=== PATIENT | female | born 1950 | race Caucasian/White ===

== ENCOUNTER 2020-01-04 16:04 | Inpatient (IN) ==
[2020-01-04] MEDS ORDERED: Acetaminophen 325 MG TABLET PO ONE (16:11)
[2020-01-04] MEDS ORDERED: 0.9 % Sodium Chloride 1,000 ML IVC ONE (16:11)
[2020-01-04 16:32] LABS: Bilirubin,Urine Negative (Negative); Blood,Urine Negative (Negative); Clarity,Urine Clear (Clear); Color,Urine Yellow (Yellow); Glucose,Urine (UA) Normal (Normal); Ketones,Urine Negative (Negative); Leukocyte Esterase,Urine Negative (Negative); Nitrite,Urine Negative (Negative); Protein,Urine Negative (Neg-Trace); Specific Gravity,Urine 1.015 (1.010-1.025); Urobilinogen,Urine Normal (Normal)
[2020-01-04 16:42] LABS: Basophils # 0.1 K/mcL (0.0-0.2); Basophils % 0.9 %; Eosinophils # 0.4 K/mcL (0.0-0.6); Hematocrit 37.5 % (35.3-44.9); Hemoglobin 12.8 g/dL (11.5-15.4); Immature Granulocytes % 0.4 % (0-4); Lymphocytes # 1.2 K/mcL (0.6-4.6); Lymphocytes % 8.8 %; Mean Corpuscular HGB Conc 34.1 g/dL (31.6-35.5); Mean Corpuscular Hemoglobin 28.4 pg (28.0-33.3); Mean Corpuscular Volume 83.1 fL (83.0-100.0); Mean Platelet Volume 10.6 fL (9.4-12.4); Monocytes # 1.5 K/mcL (0.0-1.3); Monocytes % 10.5 %; Neutrophils # 10.8 K/mcL (1.6-8.9); Platelet Count 796 K/mcL (140-400); Red Blood Count 4.51 M/mcL (3.82-4.97); Red Cell Distribution Width 14.5 % (11.5-14.5); Segmented Neutrophils % 76.4 %; White Blood Count 14.1 K/mcL (4.3-11.1)
[2020-01-04 16:55] LABS: Alanine Aminotransferase 13 Units/L (7-52); Albumin 3.7 g/dL (3.5-5.7); Albumin/Globulin Ratio 1.5 (1.1-2.2); Alkaline Phosphatase 80 Units/L (34-104); Aspartate Amino Transferase 22 Units/L (13-39); BUN/Creatinine Ratio 9 (6-26); Bilirubin,Total 0.4 mg/dL (0.3-1.0); Blood Urea Nitrogen 16 mg/dL (8-23); Calcium 7.9 mg/dL (8.6-10.3); Carbon Dioxide 26 mEq/L (23-29); Chloride 95 mEq/L (98-107); Globulin 2.5 g/dL (2.4-3.5); Glucose 124 mg/dL (70-105); Osmolality,Calculated 269 (280-300); Potassium 4.4 mEq/L (3.5-5.1); Sodium 128 mEq/L (136-145); Total Protein 6.2 g/dL (6.4-8.9); Troponin I < 0.03 ng/mL (< 0.04); eGFR For African Americans 33 (> 60); eGFR For Non-African Americans 27 (> 60)
[2020-01-04 19:19] LABS: Adenovirus Not Detected (Not Detect); Bordetella Pertussis Not Detected (Not Detect); Chlamydophila pneumoniae Not Detected (Not Detect); Coronavirus 229E Not Detected (Not Detect); Coronavirus HKU1 Not Detected (Not Detect); Coronavirus NL63 Not Detected (Not Detect); Coronavirus OC43 Not Detected (Not Detect); Human Metapneumovirus Not Detected (Not Detect); Human Rhinovirus/Enterovirus Not Detected (Not Detect); Influenza A Subtype 2009 H1 Not Detected (Not Detect); Influenza B Not Detected (Not Detect); Mycoplasma pneumoniae Not Detected (Not Detect); Parainfluenza Virus 1 Not Detected (Not Detect); Parainfluenza Virus 2 Not Detected (Not Detect); Parainfluenza Virus 3 Not Detected (Not Detect); Parainfluenza Virus 4 Not Detected (Not Detect); Respiratory Syncytial Virus Not Detected (Not Detect); SARS-CoV-2 Not Detected (Not Detect)
[2020-01-04] MEDS ORDERED: 0.9 % Sodium Chloride 1,000 ML IVC SCH (19:30)
[2020-01-04] MEDS ORDERED: tiZANidine 4 MG TABLET PO SCH (21:54)
[2020-01-04] MEDS ORDERED: MOM Conc 10 ML UD.LIQ PO PRN (21:54)
[2020-01-04] MEDS ORDERED: Ondansetron ODT 4 MG TAB.RAPDIS SL PRN (21:54)
[2020-01-04] MEDS ORDERED: Naloxone 0.4 MG/ML INJ IVP PRN (21:54)
[2020-01-04] MEDS ORDERED: Mag Hydrox/Al Hydrox/Simeth 30 ML UDC PO PRN (21:54)
[2020-01-04] MEDS: Pregabalin 25 MG CAPSULE PO SCH (23:30)
[2020-01-05] MEDS: 0.9 % Sodium Chloride 1,000 ML IVC SCH ×2 (00:30→06:30)
[2020-01-05] MEDS ORDERED: Ipratropium/Albuterol Neb 3 ML IH PRN (07:06)
[2020-01-05 07:32] LABS: Basophils # 0.1 K/mcL (0.0-0.2); Basophils % 0.7 %; Eosinophils # 0.6 K/mcL (0.0-0.6); Eosinophils % 3.2 %; Hematocrit 41.5 % (35.3-44.9); Hemoglobin 13.6 g/dL (11.5-15.4); Immature Granulocytes % 0.4 % (0-4); Lymphocytes % 11.5 %; Mean Corpuscular HGB Conc 32.8 g/dL (31.6-35.5); Mean Corpuscular Volume 85.4 fL (83.0-100.0); Mean Platelet Volume 10.4 fL (9.4-12.4); Monocytes # 1.8 K/mcL (0.0-1.3); Monocytes % 9.7 %; Neutrophils # 13.9 K/mcL (1.6-8.9); Platelet Count 816 K/mcL (140-400); Red Blood Count 4.86 M/mcL (3.82-4.97); Red Cell Distribution Width 14.7 % (11.5-14.5); Segmented Neutrophils % 74.5 %; White Blood Count 18.6 K/mcL (4.3-11.1)
[2020-01-05 07:33] LABS: Lymphocytes # 2.1 K/mcL (0.6-4.6)
[2020-01-05] MEDS: Pregabalin 25 MG CAPSULE PO SCH ×2 (07:52→19:40)
[2020-01-05] MEDS: Multivit/Ca/Min/Fe/FA 1 TAB TABLET PO SCH (07:52)
[2020-01-05] MEDS: Loratadine 10 MG TABLET PO SCH (07:52)
[2020-01-05] MEDS: Fluticasone Propionate Nasal 50 MCG/SPRAY BOTTLE NS SCH (08:09)
[2020-01-05 09:35] LABS: Calcium 8.8 mg/dL (8.6-10.3); Potassium 4.3 mEq/L (3.5-5.1)
[2020-01-05] MEDS: Budesonide/Formoterol 80/4.5 1 PUFF INH IH SCH ×2 (09:44→22:25)
[2020-01-05] MEDS: Nicotine 14 MG PATCH.TD24 TD SCH (09:56)
[2020-01-05] MEDS: MethylPREDNISolone 40 MG/ML VIAL IVP SCH ×2 (09:59→16:19)
[2020-01-05] MEDS ORDERED: Budesonide/Formoterol 80/4.5 1 PUFF INH IH SCH (10:00)
[2020-01-05] MEDS: Acetaminophen 325 MG TABLET PO PRN (19:40)
[2020-01-06] MEDS: MethylPREDNISolone 40 MG/ML VIAL IVP SCH ×4 (00:16→23:14)
[2020-01-06] MEDS ORDERED: Ketorolac 30 MG/ML VIAL IVP ONE (00:48)
[2020-01-06 03:39] LABS: Bilirubin,Urine Negative (Negative); Blood,Urine Negative (Negative); Clarity,Urine Clear (Clear); Color,Urine Yellow (Yellow); Glucose,Urine (UA) 100 mg/dL (Normal); Ketones,Urine Negative (Negative); Leukocyte Esterase,Urine Negative (Negative); Nitrite,Urine Negative (Negative); PH,Urine 6.5 pH Units (5.0-8.0); Protein,Urine 30 mg/dL (Neg-Trace); Urobilinogen,Urine Normal (Normal)
[2020-01-06 03:44] LABS: Bacteria,Urine Few per hpf (None-Few); RBC,Urine 0-3 per hpf (0-3); Squamous Epithelial Cell,Urine Few per hpf (None-Few); WBC,Urine 0-3 per hpf (0-3)
[2020-01-06 03:47] LABS: Transitional Epi Cells,Urine Few per hpf (None-Few)
[2020-01-06 03:50] LABS: Renal Epithelial Cells,Urine Few per hpf (None-Few)
[2020-01-06 07:21] LABS: Basophils # 0.1 K/mcL (0.0-0.2); Basophils % 0.2 %; Hematocrit 39.8 % (35.3-44.9); Hemoglobin 13.5 g/dL (11.5-15.4); Immature Granulocytes % 1.2 % (0-4); Lymphocytes % 4.1 %; Mean Corpuscular HGB Conc 33.9 g/dL (31.6-35.5); Mean Corpuscular Hemoglobin 28.2 pg (28.0-33.3); Mean Corpuscular Volume 83.1 fL (83.0-100.0); Mean Platelet Volume 10.2 fL (9.4-12.4); Monocytes # 0.6 K/mcL (0.0-1.3); Monocytes % 2.2 %; Platelet Count 797 K/mcL (140-400); Red Blood Count 4.79 M/mcL (3.82-4.97); Red Cell Distribution Width 14.6 % (11.5-14.5); Segmented Neutrophils % 92.3 %; White Blood Count 25.2 K/mcL (4.3-11.1)
[2020-01-06 07:34] LABS: Neutrophils # 23.3 K/mcL (1.6-8.9)
[2020-01-06] MEDS: Pregabalin 25 MG CAPSULE PO SCH ×2 (07:41→19:43)
[2020-01-06] MEDS: Acetaminophen 325 MG TABLET PO PRN (07:41)
[2020-01-06] MEDS: Loratadine 10 MG TABLET PO SCH (07:42)
[2020-01-06] MEDS: Multivit/Ca/Min/Fe/FA 1 TAB TABLET PO SCH (07:42)
[2020-01-06] MEDS: Nicotine 14 MG PATCH.TD24 TD SCH (07:42)
[2020-01-06] MEDS: Fluticasone Propionate Nasal 50 MCG/SPRAY BOTTLE NS SCH (07:42)
[2020-01-06] MEDS: Metoprolol XL (24 HR) Succ 50 MG TAB.ER.24H PO SCH ×2 (07:42→07:52)
[2020-01-06 07:48] LABS: Calcium 9.3 mg/dL (8.6-10.3); Potassium 4.3 mEq/L (3.5-5.1)
[2020-01-06] MEDS ORDERED: Doxycycline 100 MG in 0.9 % Sodium Chloride Mini Bag 100 ML IVPB SCH ×2 (08:00→10:30)
[2020-01-06] MEDS ORDERED: Perflutren Lipid Microsphere 1.3 ML in 0.9 % Sodium Chloride 8.7 ML IVP PRN (08:01)
[2020-01-06 09:29] LABS: Platelet Estimate Increased (Normal)
[2020-01-06] MEDS: Budesonide/Formoterol 80/4.5 1 PUFF INH IH SCH ×2 (10:11→21:36)
[2020-01-06] MEDS: Doxycycline 100 MG in 0.9 % Sodium Chloride Mini Bag 100 ML IVPB SCH ×2 (10:29→21:51)
[2020-01-06] MEDS ORDERED: tiZANidine 4 MG TABLET PO PRN (15:33)
[2020-01-06] MEDS: cefTRIAXone 2,000 MG in 0.9 % Sodium Chloride Mini Bag 100 ML IVPB SCH (15:59)
[2020-01-06] MEDS ORDERED: cefTRIAXone 2,000 MG in 0.9 % Sodium Chloride Mini Bag 100 ML IVPB SCH (16:00)
[2020-01-06] MEDS: 0.9 % Sodium Chloride 1,000 ML IVC SCH (16:36)
[2020-01-07] MEDS: 0.9 % Sodium Chloride 1,000 ML IVC SCH ×3 (00:45→16:58)
[2020-01-07 07:11] LABS: Basophils % 0.1 %; Eosinophils % 0.1 %; Hematocrit 38.1 % (35.3-44.9); Hemoglobin 12.9 g/dL (11.5-15.4); Immature Granulocytes % 1.1 % (0-4); Lymphocytes # 0.8 K/mcL (0.6-4.6); Lymphocytes % 3.8 %; Mean Corpuscular HGB Conc 33.9 g/dL (31.6-35.5); Mean Corpuscular Hemoglobin 28.2 pg (28.0-33.3); Mean Corpuscular Volume 83.4 fL (83.0-100.0); Mean Platelet Volume 10.5 fL (9.4-12.4); Monocytes # 0.6 K/mcL (0.0-1.3); Monocytes % 2.8 %; Platelet Count 755 K/mcL (140-400); Red Blood Count 4.57 M/mcL (3.82-4.97); Red Cell Distribution Width 14.7 % (11.5-14.5); Segmented Neutrophils % 92.1 %; White Blood Count 21.8 K/mcL (4.3-11.1)
[2020-01-07 07:12] LABS: Neutrophils # 20.1 K/mcL (1.6-8.9)
[2020-01-07 07:21] LABS: BUN/Creatinine Ratio 16 (6-26); Blood Urea Nitrogen 17 mg/dL (8-23); Calcium 8.8 mg/dL (8.6-10.3); Carbon Dioxide 26 mEq/L (23-29); Chloride 94 mEq/L (98-107); Glucose 149 mg/dL (70-105); Osmolality,Calculated 270 (280-300); Potassium 4.5 mEq/L (3.5-5.1); Sodium 128 mEq/L (136-145); eGFR For African Americans > 60 (> 60); eGFR For Non-African Americans 51 (> 60)
[2020-01-07] MEDS: Metoprolol XL (24 HR) Succ 50 MG TAB.ER.24H PO SCH (08:33)
[2020-01-07] MEDS: Multivit/Ca/Min/Fe/FA 1 TAB TABLET PO SCH (08:33)
[2020-01-07] MEDS: Loratadine 10 MG TABLET PO SCH (08:33)
[2020-01-07] MEDS: Nicotine 14 MG PATCH.TD24 TD SCH ×2 (08:33→16:12)
[2020-01-07] MEDS: Pregabalin 25 MG CAPSULE PO SCH ×2 (08:33→19:53)
[2020-01-07] MEDS: MethylPREDNISolone 40 MG/ML VIAL IVP SCH ×3 (08:34→23:20)
[2020-01-07] MEDS: Fluticasone Propionate Nasal 50 MCG/SPRAY BOTTLE NS SCH (08:34)
[2020-01-07] MEDS: Budesonide/Formoterol 80/4.5 1 PUFF INH IH SCH ×2 (08:52→22:44)
[2020-01-07] MEDS: Doxycycline 100 MG in 0.9 % Sodium Chloride Mini Bag 100 ML IVPB SCH ×2 (12:07→23:20)
[2020-01-07] MEDS: Acetaminophen 325 MG TABLET PO PRN (14:30)
[2020-01-07] MEDS: cefTRIAXone 2,000 MG in 0.9 % Sodium Chloride Mini Bag 100 ML IVPB SCH (15:09)
[2020-01-07] MEDS: Aspirin Enteric Coated 81 MG Tablet PO SCH (16:56)
[2020-01-08 06:25] VITALS: BP 168/89
[2020-01-08 07:14] LABS: Basophils % 0.2 %; Eosinophils # 0.1 K/mcL (0.0-0.6); Eosinophils % 0.2 %; Hematocrit 42.4 % (35.3-44.9); Hemoglobin 14.3 g/dL (11.5-15.4); Immature Granulocytes % 1.2 % (0-4); Lymphocytes # 1.1 K/mcL (0.6-4.6); Lymphocytes % 4.4 %; Mean Corpuscular HGB Conc 33.7 g/dL (31.6-35.5); Mean Platelet Volume 10.4 fL (9.4-12.4); Monocytes # 1.2 K/mcL (0.0-1.3); Monocytes % 4.9 %; Neutrophils # 21.7 K/mcL (1.6-8.9); Platelet Count 916 K/mcL (140-400); Red Blood Count 5.11 M/mcL (3.82-4.97); Red Cell Distribution Width 14.7 % (11.5-14.5); Segmented Neutrophils % 89.1 %; White Blood Count 24.3 K/mcL (4.3-11.1)
[2020-01-08 07:34] LABS: Basophils # 0.1 K/mcL (0.0-0.2)
[2020-01-08 08:57] LABS: Calcium 9.6 mg/dL (8.6-10.3); Potassium 4.3 mEq/L (3.5-5.1)
[2020-01-08] MEDS: MethylPREDNISolone 40 MG/ML VIAL IVP SCH (09:11)
[2020-01-08] MEDS: Nicotine 14 MG PATCH.TD24 TD SCH (09:33)
[2020-01-08] MEDS: Aspirin Enteric Coated 81 MG Tablet PO SCH (09:34)
[2020-01-08] MEDS: Loratadine 10 MG TABLET PO SCH (09:34)
[2020-01-08] MEDS: Fluticasone Propionate Nasal 50 MCG/SPRAY BOTTLE NS SCH (09:34)
[2020-01-08] MEDS: Multivit/Ca/Min/Fe/FA 1 TAB TABLET PO SCH (09:34)
[2020-01-08] MEDS: Pregabalin 25 MG CAPSULE PO SCH (09:34)
[2020-01-08] MEDS: Metoprolol XL (24 HR) Succ 50 MG TAB.ER.24H PO SCH (09:34)
[2020-01-08 10:14] LABS: Platelet Estimate Marked Increase (Normal)
[2020-01-08] MEDS: Budesonide/Formoterol 80/4.5 1 PUFF INH IH SCH (10:24)
[2020-01-08] MEDS: Doxycycline 100 MG in 0.9 % Sodium Chloride Mini Bag 100 ML IVPB SCH (11:15)
== END 2020-01-08 13:00 | disposition home health service (06) | DRG 871 ==
LOC: EMEROOPIK 16:04 → INPPIK 16:04
PROVIDERS: ADMIT Family Medicine; ATTEND Family Medicine

== ENCOUNTER 2020-09-14 14:01 | Inpatient (IN) ==
[2020-09-14] MEDS ORDERED: methylPREDNISolone 125 MG/2 ML VIAL IVP ONE (14:24)
[2020-09-14] MEDS ORDERED: 0.9 % Sodium Chloride 1,000 ML IVC ONE (14:24)
[2020-09-14] MEDS ORDERED: Albuterol 2.5 MG/3 ML NEBULIZER IH ONE (14:24)
[2020-09-14] MEDS ORDERED: cefTRIAXone 2,000 MG in Water for inj. (sterile) 10 ML IVP ONE (14:24)
[2020-09-14] MEDS ORDERED: Azithromycin 500 MG in 0.9 % Sodium Chloride 250 ML IVPB ONE (14:24)
[2020-09-14 14:56] LABS: Basophils # 0.1 K/mcL (0.0-0.2); Basophils % 0.3 %; Hematocrit 40.6 % (35.3-44.9); Hemoglobin 13.4 g/dL (11.5-15.4); Immature Granulocytes % 1.1 % (0-4); Lymphocytes # 1.3 K/mcL (0.6-4.6); Lymphocytes % 3.9 %; Mean Corpuscular Volume 75.9 fL (83.0-100.0); Mean Platelet Volume 10.9 fL (9.4-12.4); Monocytes # 2.6 K/mcL (0.0-1.3); Monocytes % 7.7 %; Neutrophils # 29.5 K/mcL (1.6-8.9); Platelet Count 944 K/mcL (140-400); Red Blood Count 5.35 M/mcL (3.82-4.97); Red Cell Distribution Width 15.2 % (11.5-14.5)
[2020-09-14 15:03] LABS: INR 1.5; Prothrombin Time 16.7 Seconds (9.4-12.1)
[2020-09-14 15:11] LABS: Albumin 4.3 g/dL (3.5-5.7); Albumin/Globulin Ratio 1.3 (1.1-2.2); Bilirubin,Direct 0.3 mg/dL (0.0-0.2); Bilirubin,Indirect 0.5 mg/dL (0.0-1.0); Bilirubin,Total 0.8 mg/dL (0.3-1.0); Calcium 9.1 mg/dL (8.6-10.3); Globulin 3.3 g/dL (2.4-3.5); Potassium 4.6 mEq/L (3.5-5.1); Total Protein 7.6 g/dL (6.4-8.9)
[2020-09-14 15:15] LABS: Troponin I 0.03 ng/mL (< 0.04)
[2020-09-14 15:36] LABS: White Blood Count 33.9 K/mcL (4.3-11.1)
[2020-09-14 15:48] LABS: Platelet Estimate Increased (Normal)
[2020-09-14 16:26] LABS: Bilirubin,Urine Negative (Negative); Blood,Urine Negative (Negative); Clarity,Urine Clear (Clear); Color,Urine Yellow (Yellow); Glucose,Urine (UA) Normal (Normal); Ketones,Urine 15 mg/dL (Negative); Leukocyte Esterase,Urine Negative (Negative); Nitrite,Urine Negative (Negative); PH,Urine 5.5 pH Units (5.0-8.0); Protein,Urine 30 mg/dL (Neg-Trace); Specific Gravity,Urine 1.015 (1.010-1.025); Urobilinogen,Urine Normal (Normal)
[2020-09-14 16:33] LABS: Amphetamine Screen,Urine Negative ng/mL (Cutoff=1000); Barbiturate Screen,Urine Negative ng/mL (Cutoff=200); Benzodiazepines Screen,Urine Negative ng/mL (Cutoff=200); Cannabinoid Screen,Urine Negative ng/mL (Cutoff = 50); Cocaine Screen,Urine Negative ng/mL (Cutoff= 300); Opiate Screen,Urine Negative ng/mL (Cutoff=300); Phencyclidine Screen,Urine Negative ng/mL (Cutoff=25)
[2020-09-14 16:35] LABS: RBC,Urine 0-3 per hpf (0-3); Squamous Epithelial Cell,Urine Few per hpf (None-Few); WBC,Urine 0-3 per hpf (0-3)
[2020-09-14] MEDS: 0.9 % Sodium Chloride 1,000 ML IVC SCH (16:41)
[2020-09-14] MEDS ORDERED: Melatonin 3 MG TABLET PO PRN (16:54)
[2020-09-14] MEDS ORDERED: MOM Conc 10 ML UD.LIQ PO PRN (16:54)
[2020-09-14] MEDS ORDERED: Ondansetron 4 MG/2 ML VIAL IVP PRN (16:54)
[2020-09-14] MEDS ORDERED: Naloxone 0.4 MG/ML INJ IVP PRN (16:54)
[2020-09-14] MEDS ORDERED: Mag Hydrox/Al Hydrox/Simeth 30 ML UDC PO PRN (16:54)
[2020-09-14] MEDS: Ipratropium/Albuterol Neb 3 ML IH SCH ×3 (17:52→23:08)
[2020-09-14] MEDS: Nicotine 14 MG PATCH.TD24 TD SCH (18:43)
[2020-09-14] MEDS: Pregabalin 25 MG CAPSULE PO SCH (21:31)
[2020-09-14] MEDS: tiZANidine 4 MG TABLET PO SCH (21:32)
[2020-09-15] MEDS: MethylPREDNISolone 40 MG/ML VIAL IVP SCH ×3 (00:28→15:14)
[2020-09-15] MEDS: 0.9 % Sodium Chloride 1,000 ML IVC SCH ×2 (02:29→15:10)
[2020-09-15] MEDS: Ipratropium/Albuterol Neb 3 ML IH SCH ×5 (03:27→20:10)
[2020-09-15] MEDS: GuaiFENesin Liq 200 MG/10 ML UDC PO PRN (05:22)
[2020-09-15] MEDS: *HR* Enoxaparin 40 MG/0.4 ML SYRINGE SQ SCH (05:22)
[2020-09-15 07:07] LABS: Basophils % 0.1 %; Hematocrit 35.3 % (35.3-44.9); Hemoglobin 11.7 g/dL (11.5-15.4); Immature Granulocytes % 1.7 % (0-4); Lymphocytes # 0.6 K/mcL (0.6-4.6); Lymphocytes % 2.1 %; Mean Corpuscular HGB Conc 33.1 g/dL (31.6-35.5); Mean Corpuscular Hemoglobin 25.1 pg (28.0-33.3); Mean Corpuscular Volume 75.8 fL (83.0-100.0); Mean Platelet Volume 11.2 fL (9.4-12.4); Monocytes # 0.4 K/mcL (0.0-1.3); Monocytes % 1.4 %; Neutrophils # 25.8 K/mcL (1.6-8.9); Platelet Count 850 K/mcL (140-400); Red Blood Count 4.66 M/mcL (3.82-4.97); Red Cell Distribution Width 15.3 % (11.5-14.5); Segmented Neutrophils % 94.7 %; White Blood Count 27.2 K/mcL (4.3-11.1)
[2020-09-15 07:31] LABS: Calcium 8.5 mg/dL (8.6-10.3); Potassium 3.7 mEq/L (3.5-5.1)
[2020-09-15 08:06] LABS: Large Platelets Present (Not Present); Platelet Estimate Marked Increase (Normal)
[2020-09-15] MEDS ORDERED: Multivit/Ca/Min/Fe/FA 1 TAB TABLET PO SCH (09:00)
[2020-09-15] MEDS ORDERED: Loratadine 10 MG TABLET PO SCH (09:00)
[2020-09-15] MEDS ORDERED: Azithromycin 500 MG in 0.9 % Sodium Chloride 250 ML IVPB SCH (09:00)
[2020-09-15] MEDS ORDERED: FLUTICASONE PROPIONATE 100 MCG IH SCH (09:00)
[2020-09-15] MEDS ORDERED: Aspirin Enteric Coated 81 MG Tablet PO SCH (09:00)
[2020-09-15] MEDS ORDERED: Budesonide/Formoterol 80/4.5 1 PUFF INH IH SCH (10:00)
[2020-09-15] MEDS: Nicotine 14 MG PATCH.TD24 TD SCH (10:01)
[2020-09-15] MEDS: Pregabalin 25 MG CAPSULE PO SCH ×2 (10:01→19:49)
[2020-09-15] MEDS: tiZANidine 4 MG TABLET PO SCH ×3 (10:01→19:49)
[2020-09-15] MEDS: Acetaminophen 325 MG TABLET PO PRN ×2 (10:24→20:59)
[2020-09-15] MEDS ORDERED: amLODIPine 5 MG TABLET PO SCH (16:35)
[2020-09-15] MEDS ORDERED: cefTRIAXone 2,000 MG in 0.9 % Sodium Chloride Mini Bag 100 ML IVPB SCH (17:00)
[2020-09-15] MEDS ORDERED: Budesonide/Formoterol 160/4.5 1 PUFF INH IH SCH (22:00)
[2020-09-16] MEDS: MethylPREDNISolone 40 MG/ML VIAL IVP SCH (00:15)
[2020-09-16] MEDS: Ipratropium/Albuterol Neb 3 ML IH SCH ×2 (00:18→04:20)
[2020-09-16] MEDS: GuaiFENesin Liq 200 MG/10 ML UDC PO PRN (01:32)
[2020-09-16] MEDS ORDERED: Isovue-370 500 ML BOTTLE IVP ONE (03:22)
[2020-09-16] MEDS ORDERED: *HR* Metoprolol 5 MG/5 ML VIAL IVP ONE ×3 (03:27→05:09)
[2020-09-16 04:23] LABS: Hematocrit 35.7 % (35.3-44.9); Hemoglobin 11.7 g/dL (11.5-15.4); Mean Corpuscular HGB Conc 32.8 g/dL (31.6-35.5); Mean Corpuscular Hemoglobin 24.9 pg (28.0-33.3); Mean Corpuscular Volume 76.1 fL (83.0-100.0); Mean Platelet Volume 10.8 fL (9.4-12.4); Platelet Count 943 K/mcL (140-400); Red Blood Count 4.69 M/mcL (3.82-4.97); Red Cell Distribution Width 15.4 % (11.5-14.5)
[2020-09-16 04:24] LABS: White Blood Count 31.9 K/mcL (4.3-11.1)
[2020-09-16 04:44] LABS: BUN/Creatinine Ratio 13 (6-26); Blood Urea Nitrogen 12 mg/dL (8-23); Calcium 8.7 mg/dL (8.6-10.3); Carbon Dioxide 25 mEq/L (23-29); Chloride 95 mEq/L (98-107); Glucose 153 mg/dL (70-105); Magnesium 1.7 mg/dL (1.6-2.6); Osmolality,Calculated 275 (280-300); Potassium 3.7 mEq/L (3.5-5.1); Sodium 131 mEq/L (136-145); eGFR For African Americans > 60 (> 60); eGFR For Non-African Americans 60 (> 60)
[2020-09-16 04:53] LABS: Large Platelets Present (Not Present); Neutrophils # 31.9 K/mcL (1.6-8.9); Platelet Estimate Marked Increase (Normal)
[2020-09-16 04:54] LABS: Toxic Vacuolation Present (Not Present)
[2020-09-16] MEDS: *HR* Enoxaparin 40 MG/0.4 ML SYRINGE SQ SCH (05:19)
[2020-09-16] MEDS ORDERED: DilTIAZem 125 MG in 0.9 % Sodium Chloride 50 MG/100 ML IV.SOLN IVC SCH (05:45)
[2020-09-16] MEDS ORDERED: *HR* Enoxaparin 80 MG/0.8 ML SYRINGE SQ SCH ×2 (06:00→18:00)
[2020-09-16] MEDS ORDERED: *HR* Enoxaparin 40 MG/0.4 ML SYRINGE SQ ONE (06:00)
[2020-09-16 06:31] VITALS: BP 189/78
== END 2020-09-16 06:48 | disposition other institution (70) | DRG 191 ==
LOC: EMEROOPIK 14:01 → INPPIK 14:01
PROVIDERS: ADMIT Family Medicine; ATTEND Family Medicine